=== PATIENT | male | born 1960 | race Caucasian/White ===

== ENCOUNTER 2019-07-25 16:27 | Emergency (ER) | payer BC, OTHER ==
[2019-07-25] MEDS ORDERED: Morphine 4 MG/ML VIAL (1 ml) 4 MG/ML VIAL IV ONE ×2 (18:07→21:30)
--- NOTE | 2019-07-25 18:27 | ED ---
Adult Trauma - HPI Summary HPI Summary: 59-year-old male presents with right rib injury today. He states that he was cleaning out a barn when he he ended up falling through second floor and tried to catch self before falling through the floor. He landed on his right ribs. He has worsening pain when he takes a deep breath. Denies any bowel pain. He states he is in severe pain. Denies any head injury. No loss consciousness. No back pain. No other injury. Is not on any blood thinners. - History of Current Complaint Chief Complaint: EDChestWallPain Stated Complaint: RIB INJURY PER PT Time Seen by Provider: 07/25/19 17:54 Pain Intensity: 9 - Allergy/Home Medications Allergies/Adverse Reactions: Allergies Allergy/AdvReac Type Severity Reaction Status Date / Time No Known Allergies Allergy Verified 07/25/19 16:33 Home Medications: Home Medications Lisinopril TAB* [Prinivil TAB 5 MG*] 5 mg PO DAILY 07/25/19 [History Confirmed 07/25/19] Rosuvastatin Calcium 20 mg PO DAILY 07/25/19 [History Confirmed 07/25/19] metFORMIN* [Glucophage 500 MG TAB *] 500 mg PO DAILY 07/25/19 [History Confirmed 07/25/19] PMH/Surg Hx/FS Hx/Imm Hx Endocrine/Hematology History: Reports: Hx Diabetes Denies: Hx Anticoagulant Therapy Cardiovascular History: Reports: Hx Hypertension Sensory History: Denies: Hx Contacts or Glasses Opthamlomology History: Denies: Hx Contacts or Glasses Infectious Disease History: No Infectious Disease History: Denies: Traveled Outside the [place] in Last 30 Days - Social History Substance Use Type: Reports: None Review of Systems Negative: Fever Positive: Chest Pain Positive: Shortness Of Breath Positive: Abdominal Pain All Other Systems Reviewed And Are Negative: Yes Physical Exam Triage Information Reviewed: Yes Vital Signs On Initial Exam: Initial Vitals Temp Pulse Resp BP Pulse Ox 98.2 F 125 18 151/112 95 07/25/19 16:29 07/25/19 16:29 07/25/19 16:29 07/25/19 16:29 07/25/19 16:29 Vital Signs Reviewed: Yes Appearance: Positive: Well-Appearing Skin: Positive: Warm, Dry, Other - abrasion to right side of thoracic back to ribs Head/Face: Positive: Normal Head/Face Inspection Eyes: Positive: Normal, Conjunctiva Clear ENT: Positive: Pharynx normal Respiratory/Lung Sounds: Positive: Clear to Auscultation, Breath Sounds Present , Other - tenderness over right ribs Cardiovascular: Positive: Normal, RRR Abdomen Description: Positive: Soft, CVA Tenderness (R), Other: - tenderness in RUQ. Negative: CVA Tenderness (L) Bowel Sounds: Positive: Present Musculoskeletal: Positive: Normal Neurological: Positive: Normal Psychiatric: Positive: Normal Procedures - Sedation Patient Received Moderate/Deep Sedation with Procedure: No Diagnostics - Vital Signs Vital Signs Temp Pulse Resp BP Pulse Ox 07/25/19 16:29 98.2 F 125 18 151/112 95 - Laboratory Result Diagrams: 07/25/19 18:30 07/25/19 18:30 Lab Statement: Any lab studies that have been ordered have been reviewed, and results considered in the medical decision making process. - Radiology chest Radiology Interpretation Completed By: ED Physician Summary of Radiographic Findings: no pneumothoracic - CT chest, abd CT Interpretation Completed By: Radiologist Summary of CT Findings: 1. Acute right 8th and 9th rib fractures with adjacent subcutaneous emphysema. 2. Tiny right pneumothorax. 3. Small amount of right hemo thorax. 4. Bilateral lower lobe atelectasis. A small amount of right lower lobe pulmonary contusion not excluded. Adult Trauma Course/Dx - Course Course Of Treatment: 59-year-old male presents with right rib injury today. He fell through second floor landing on his right ribs. He has worsening pain when he takes a deep breath. Denies any bowel pain. Denies any head injury. No loss consciousness. No back pain. No other injury. Is not on any blood thinners. On exam has abrasion on the right side of ribs. Tenderness over right ribs. does have right CVA tenderness in right upper quadrant pain. lungs CTA. nontender neck and back. full ROM neck. Portal chest x-ray shows no pneumothorax. CT shows right 8-9th rib fracture. tiny right pneumo less than 1% . small amount of hemotrhoax. bilateral lower lobe atelectasis can not exclude pulmonary contusion. as patient is a trauma will transfer to a trauma center. [facility] - Diagnoses Differential Diagnosis/HQI/PQRI: Positive: Abrasion(s), Contusion(s), Fracture Provider Diagnoses: Fall, Pneumothorax, Hemothorax, Right rib fracture - Critical Care Time Critical Care Time: 30-74 min - 60 mins Critical Care Statement: Critical care time is provided exclusive of any time spent performing procedures. Discharge ED - Sign-Out/Discharge Documenting (check all that apply): Patient Departure - Discharge Plan Condition: Stable Disposition: TRANS HIGHER LVL OF CARE FAC Referrals: No Primary Care Phys,NOPCP [Primary Care Provider] - - Billing Disposition and Condition Condition: STABLE Disposition: Trans Higher Lvl of Care Fac
[2019-07-25 18:42] LABS: ABS Basophils 0.1 10^3/ul (0-0.2); ABS Lymphocytes 0.8 10^3/ul (1.0-4.8); ABS Monocytes 0.6 10^3/ul (0-0.8); ABS Neutrophils 13.1 10^3/ul (1.5-7.7); Eosinophil % 0.3 %; Hematocrit 47 % (42-52); Hemoglobin 16.1 g/dL (14.0-18.0); Lymphocyte % 5.6 %; Mean Corpuscular HGB Conc 34 g/dL (31-36); Mean Corpuscular Hemoglobin 32 pg (27-31); Mean Corpuscular Volume 92 fL (80-94); Platelet Count 262 10^3/uL (150-450); Red Blood Count 5.08 10^6 /uL (4.18-5.48); Red Cell Distribution Width 13 % (10-15); White Blood Count 14.6 10^3/uL (3.5-10.8)
[2019-07-25 19:02] LABS: Albumin 4.8 g/dL (3.2-5.2); Albumin/Globulin Ratio 1.8 (1-3); EGFR African American 101.5 (>60); EGFR Non-African American 83.9 (>60); Globulin 2.7 g/dL (2-4); Total Bilirubin 0.4 mg/dL (0.2-1.0); Total Protein 7.5 g/dL (6.4-8.9)
[2019-07-25] MEDS ORDERED: Iodixanol* (CONTRAST) 320 MG/ML 100 ML SDV IV ONE (19:06)
[2019-07-25 22:19] VITALS: BP 91/62
== END 2019-07-25 22:18 | disposition short-term general hospital (02) ==
LOC: ED 16:27
DX: S22.31XA Fracture of one rib, right side, initial encounter for closed fracture (principal); W17.89XA Other fall from one level to another, initial encounter; Y92.71 Barn as the place of occurrence of the external cause; E11.9 Type 2 diabetes mellitus without complications; I10 Essential (primary) hypertension; R10.9 Unspecified abdominal pain; R06.02 Shortness of breath; J93.9 Pneumothorax, unspecified; J94.2 Hemothorax; Z79.84 Long term (current) use of oral hypoglycemic drugs; Z79.899 Other long term (current) drug therapy
CPT/HCPCS: 36415; 71045; 71260; 74177; 80053; 85025; 96374; 96375; 99285; J2270; Q9967